=== PATIENT | male | born 1990 | race Caucasian/White ===

== ENCOUNTER 2024-09-18 16:55 | Emergency (ER) | payer SELFPAY ==
[2024-09-18 17:02] VITALS: BP 126/86
[2024-09-18 17:08] VITALS: BMI 21.5
--- NOTE | 2024-09-18 17:23 | ED.GENMED ---
History of Present Illness
General
Chief Complaint: Crisis Evaluation
Source: patient
Time Seen by Provider: 09/18/24 17:06
History of Present Illness
History of Present Illness:
This patient is a 34-year-old male presented to the emergency department after cutting himself in the left antecubital fossa just prior to presentation. He states that he has an ongoing history of depression, and has been feeling increasingly
depressed because he is in between jobs, and feels worthless. He does not specifically state that he was suicidal, but rather just that he is in pain which is why he cut himself. He denies any physical complaints otherwise such as numbness,
tingling, chest pain, shortness of breath, or other complaints. He denies any other injury. He is unsure if he is up-to-date on tetanus declines our recommendation to update him here.
Past History
Past History
ED Past Medical History: Psychiatric
Social History
Tobacco: Non-smoker
Alcohol: None
Drug: None
Personal: Single
Living: with roommate
Employment: Not employed
Phy Exam
Physical Exam
Physical Exam:
GENERAL: Alert , in no apparent distress
EYE: pupils equal and reactive
NECK: Supple, no significant adenopathy.
ENT: o/p clr, mmm.
CARDIAC: Regular rate and rhythm .
LUNGS: Clear breath sounds bilaterally, no acute respiratory distress, no wheezes/rales/rhonchi
ABDOMEN: Soft, without focal tenderness, no r/g, no cvat
NEUROLOGICAL: Alert and oriented, no focal neuro deficits
SKIN: Warm and dry, approximately 4 cm very superficial linear abscess in the left antecubital fossa. Explored to base and through full range of motion, no injury to tendon, muscle, joint.
MUSCULOSKELETAL: No edema, well perfused.
PSYCH: Flat affect but cooperative
Course
Orders/Labs/Results
Orders:
Orders
09/18/24 17:01
Crisis Consult Urgent
Reason for Consult: self harm via cutting today left elbow
09/18/24 18:28
ED Special Safety Observation ONCE
Observation level: One to Two
09/18/24 17:01
09/18/24 17:01
Vital Signs
Initial and Last Documented VS:
Initial Vital Signs
Temp Pulse Resp BP Pulse Ox
98.0 F 55 16 126/86 98
09/18/24 17:02 09/18/24 17:02 09/18/24 17:02 09/18/24 17:02 09/18/24 17:02
Last Documented Vital Signs
Temp Pulse Resp BP Pulse Ox
98.0 F 55 16 126/86 98
09/18/24 17:02 09/18/24 17:02 09/18/24 17:02 09/18/24 17:02 09/18/24 17:26
Procedures
Laceration Closure
Left Arm:
Status of Wound: clean
Size of Wound in cm: 4
Description of Wound Edges: sharp
Preparation: cleaned with saline
Anesthesia: 1% Lidocaine with epi
Revision/Debridement: routine- no revision
Wound exploration: explored to base- no FB
Type of Closure: single layer closure
Skin Closure Material: 4-0 nylon
Number of sutures: 6
*Pulse Oximetry
SaO2: 98
Oxygen Mode of Delivery: Room air
Update Note
Update Note:
Patient presents to the Emergency Department with ____depression
Number and Complexity of Problems Addressed at the Encounter
� Chronic conditions affecting care:
� Acute Exacerbation and/or Progression of Chronic Illness:
� Differential Diagnosis includes: But not limited to tendon injury, joint injury, nerve injury, suicidal ideation, etc. etc.
Amount and/or Complexity of Data to be Reviewed and Analyzed
� I performed an independent evaluation of and my interpretation is:
EKG:
CT:
Xrays:
Laboratory Studies:
Other:
� Review of other/old records reveals:
� Clinical information was obtained by an independent historian:
� Prescriptions/Medications Considered but not given:
� Further testing considered but not performed:
Risk of Complications and/or Morbidity or Mortality of Patient Management
� Social determinants of health affecting care:
� Discussion with other providers (PCP, Hospitalists, Consultants, etc):
� Escalation of care including admission/observation vs risk of discharge considered: Wound cleaned by tech, repaired by me, dressed by RN. Long discussion with father regarding patient's presentation here, prior events, etc.
We mutually agree that patient would be best if placed in inpatient treatment. Patient is reluctant to that. Father will file 302. I have upheld this 302.
ED Attending Note
-
Portions of this chart may have been created with voice recognition software.� Occasional wrong word or��sound alike� substitutions may have occurred due to the inherent limitations of voice recognition software.
Discharge Plan
Departure
Patient Disposition: Psych Facility
Date of Disposition: 09/18/24
Time of Disposition: 20:05
Condition: Good
Discharge Problem:
Depression, Laceration
Prescriptions:
No Action
escitalopram oxalate 10 mg Tablet
10 mg PO DAILY
Interventions
Interventions:
*Risk Screen - Suicide Last Done: 09/18/24 17:02
*General Assessment Last Done: 09/18/24 17:08
*Neglect/Abuse Screening Last Done: 09/18/24 17:02
*ED- Fall Risk Assessment Last Done: 09/18/24 17:08
*ED COVID-19 Vaccine History Last Done: 09/18/24 17:08
ED-Psychological Assessment Last Done: 09/18/24 17:12
Discharge Date and Time
Print Language: ARMENIAN
[2024-09-18 21:00] VITALS: BP 111/66
== END 2024-09-19 02:09 ==
LOC: EMR 16:55
PROVIDERS: EMERGENCY PHYSICIAN Emergency Medicine
DX: F32.A Depression, unspecified (principal); S51.812A Laceration without foreign body of left forearm, initial encounter; Y33.XXXA Other specified events, undetermined intent, initial encounter
CPT/HCPCS: 12002; 99285